=== PATIENT | female | born 1930 | race Caucasian/White ===

== ENCOUNTER 2016-08-24 05:23 | Emergency (ER) | payer MEDICARE ==
[~2016-08-24 05:23] MED LIST: ACET500CAP PO; AMARYL2 PO; ANUSOL-HC2.5 % RE; ATV.5 PO; B121000P IM; BONIVA150 MG PO; BROVANA15 MCG INH; C2 PO; C25 PO; CALCIUM ANTACID PO; CARDIZEM LA120 MG PO; CARTIA XT120 MG/24 PO; CELEXA10 PO; CELEXA20 PO; CEPACOL SORE MT; CERAVE TOP; CLARIT10 PO; CLOBETASOL0.051 TOP; COUMADIN3 MG PO; DILT-XR120 MG PO; DRISDOL50000 UNT PO; DSS PO; DUONEB INH; FLECTOR1.3 % TOP; FLONASE NAS; GANIDIN NR100 MG/5 M PO; GENASYME40 MG/0.6 PO; GGDM5ML PO; GGEXPSF PO; GLUCOTROL5 PO; GLUCPH PO; IMOD PO; JANTOVEN3 MG PO; K-TABS10 MEQ PO; KDUR20 PO; KLOR-CON 1010 MEQ PO; KLOR-CON M2020 MEQ PO; L40 PO; LEVAQUIN5T PO; LEVEMIR SC; LIPITOR40 PO; LIPITOR80 MG PO; LOP100 PO; LOP50 PO; LOZOLTAB PO; METHOC500B PO; MIRALAXPKT OR; MIRALAXPKT PO; MUCINEX600 MG PO; MULTIPLE VIT PO; MULTIVIT/MIN PO; MULTIVITAMI1 PO; MYCOSCROI TOP; NORV10 PO; NOVOLOG SC; NOVOPEN SC; OCUVITE PO; P10 PO; P20 PO; PERFOROM INH; PLAVIX PO; PRILO PO; PRIN20 PO; PROCTOZONE1 CRE RE; PROTONIX20 MG PO; PULRESP1 INH; RISPERDAL0.25 MG PO; SPIRO25 PO; SUDAFED PO; TAMIFLU PO; TAPAZOLE5 MG OR; TAPAZOLE5 MG PO; TEMOVATE0.051 TOP; TRAZ100 PO; TRAZ50 PO; TRAZODONE150 MG PO; TUMSROLL PO; ULTRAM50 PO; VIB100 PO; VITAMIN B-121000 MC1 SL; VITAMIN D1000 UNI1 PO; VITAMIN D31000 UNIT PO; VITD PO; VOLTAREN1 % TOP; X25 PO; ZITH250 PO; ZYRTEC ALLGY10 MG PO; [UNRECOGNIZED DRUG - CODE] EX; [UNRECOGNIZED DRUG - CODE] TOP; [UNRECOGNIZED DRUG - OTHER] INH; [UNRECOGNIZED DRUG - OTHER] PO; [UNRECOGNIZED DRUG - OTHER] PO; [UNRECOGNIZED DRUG - OTHER] TOP
== END 2016-08-24 06:22 | disposition home or self-care (01) ==
LOC: ER 05:23
DX: S32.2XXA Fracture of coccyx, initial encounter for closed fracture (principal); J44.9 Chronic obstructive pulmonary disease, unspecified; I10 Essential (primary) hypertension; I48.91 Unspecified atrial fibrillation; E11.9 Type 2 diabetes mellitus without complications; Z86.73 Personal history of transient ischemic attack (TIA), and cerebral infarction without residual deficits; Z87.891 Personal history of nicotine dependence; Z88.1 Allergy status to other antibiotic agents; Z88.2 Allergy status to sulfonamides; Z88.8 Allergy status to other drugs, medicaments and biological substances; Z79.4 Long term (current) use of insulin; Z79.01 Long term (current) use of anticoagulants; Z79.899 Other long term (current) drug therapy; W19.XXXA Unspecified fall, initial encounter
CPT/HCPCS: 72220; 73522; 99285

== ENCOUNTER 2016-09-24 14:59 | Emergency (ER) | payer MEDICARE ==
[2016-09-24 17:20] LABS: BASOPHILS 0.2 %; BASOPHILS ABSOLUTE 0.02 10/3/uL (0.0-0.16); EOSINOPHILS 0.2 %; EOSINOPHILS ABSOLUTE 0.02 10/3/uL (0.0-0.53); ER CBC TAT 0 Hrs 12 Mins; HEMOGLOBIN 10.3 g/dL (12.0-16.0); IMMATURE GRANULOCYTES 0.1 %; IMMATURE GRANULOCYTES ABSOLUTE 0.01 10/3/uL (0.0-0.11); LYMPHOCYTES 17.1 %; LYMPHOCYTES ABSOLUTE 1.49 10/3/uL (0.67-4.30); MEAN CORPUSCULAR HEMOGLOB 30.8 pg (26.0-34.0); MEAN CORPUSCULAR VOLUME 89.2 fL (80-100); MEAN PLATELET VOLUME 9.1 fL (9.2-13.0); MONOCYTES 10.3 %; NEUTROPHILS 72.1 %; NEUTROPHILS ABSOLUTE 6.29 10/3/uL (2.02-8.40); PLATELET COUNT 246 10/3/uL (150-400); RBC DISTRIBUTION WIDTH 14.2 % (12.0-16.0); WHITE BLOOD CELLS 8.7 10/3/uL (4.5-10.5)
[2016-09-24 17:21] LABS: HEMATOCRIT 29.8 % (36.0-48.0); MANUAL DIFF NO %; MEAN CORPUS HGB CONC 34.6 g/dL (32.0-36.0); RED CELL COUNT 3.34 10/6/uL (4.0-5.6)
[2016-09-24 17:28] LABS: INTERNATIONAL NORMAL RATI 1.4 UNITS (-)
[2016-09-24 17:29] LABS: PARTIAL THROMBO TIME 41.7 SEC (22.5-37.2)
[2016-09-24 17:34] LABS: BUN (BLOOD UREA NITROGEN) 15 MG/DL (6-23); CALCIUM, SERUM 8.6 MG/DL (8.5-10.4); CHEST PAIN PROFILE TAT 0 Hrs 26 Mins; CHLORIDE, SERUM 106 MMOL/L (96-112); CO2 (CARBON DIOXIDE) 27 MMOL/L (24-34); CREATININE 0.55 MG/DL (0.55-1.02); GFR AFRICAN AMERICAN 100 ML/MIN (>=60); GFR NON AFRICAN AMERICAN 86 ML/MIN (>=60); GLUCOSE, SERUM 134 MG/DL (60-99); POTASSIUM, SERUM 3.5 MMOL/L (3.5-5.3); SODIUM, SERUM 140 MMOL/L (135-148); TROPONIN I 0.02 NG/ML (<0.05)
== END 2016-09-24 20:00 | disposition home or self-care (01) ==
LOC: ER 14:59
PROVIDERS: Emergency Medicine
DX: M25.551 Pain in right hip (principal); M25.552 Pain in left hip; J44.9 Chronic obstructive pulmonary disease, unspecified; I11.0 Hypertensive heart disease with heart failure; I50.9 Heart failure, unspecified; I48.91 Unspecified atrial fibrillation; F03.90 Unspecified dementia, unspecified severity, without behavioral disturbance, psychotic disturbance, mood disturbance, and anxiety; I25.10 Atherosclerotic heart disease of native coronary artery without angina pectoris; E11.9 Type 2 diabetes mellitus without complications; Z87.01 Personal history of pneumonia (recurrent); Z87.891 Personal history of nicotine dependence; Z86.73 Personal history of transient ischemic attack (TIA), and cerebral infarction without residual deficits; Z88.2 Allergy status to sulfonamides; Z88.8 Allergy status to other drugs, medicaments and biological substances; Z79.899 Other long term (current) drug therapy; Z79.4 Long term (current) use of insulin; Z79.01 Long term (current) use of anticoagulants; W19.XXXA Unspecified fall, initial encounter
CPT/HCPCS: 71010; 73502-LT; 80048; 83735; 83880; 84484; 85025; 85610; 85730; 93005; 99284